=== PATIENT | female | born 1985 | race Caucasian/White ===

== ENCOUNTER → 2017-05-30 10:42 | Outpatient (CLI) | payer OTHER, SELFPAY ==
[2017-05-30 15:17] LABS: Hematocrit 37.6 % (37-47); Mean Corp Hgb Conc 31.9 g/gl (32-36); Mean Corpuscular Hgb 29.8 pg (27.0-32.0); Mean Corpuscular Volume 93.3 fL (81-99); Mean Platelet Vol. 9.6 fl (6.2-12.0); Platelet Count 258 K/mm3 (150-450); RBC Distribution Width CV 12.9 % (11.6-14.6); RBC Distribution Width SD 43.4 fl (35.1-43.9); Red Blood Count 4.03 M/mm3 (4.2-5.4); White Blood Count 7.6 K/mm3 (4.4-11.0)
[2017-05-30 15:19] LABS: Scan Indicated on CBC? Y/N NO
[2017-05-30 15:24] LABS: Glucose Challenge Gest 1H 50g 92 mg/dL (70-140)
== END ==
PROVIDERS: Visit Provider Obstetrics & Gynecology
DX: Z34.83 Encounter for supervision of other normal pregnancy, third trimester (principal)
CPT/HCPCS: 36415; 82950; 85027

== ENCOUNTER → 2017-07-21 16:07 | Outpatient (CLI) | payer OTHER, SELFPAY ==
[2017-07-21 17:21] LABS: Group B Strep DNA By PCR POSITIVE (Negative); Probe Check PASS
== END ==
PROVIDERS: Visit Provider Obstetrics & Gynecology
DX: Z36.85 Encounter for antenatal screening for Streptococcus B (principal)
CPT/HCPCS: 87653

== ENCOUNTER 2017-08-10 05:35 | Inpatient (IN) | payer OTHER, SELFPAY ==
[2017-08-10] VITALS (21 sets, daily range): BP systolic 86–108; BP diastolic 40–68; PULSE 62–93; RESP 15–20; TEMP 35.7–37.4; O2SAT 86–100
[2017-08-10] MEDS: Lactated Ringers 1,000 ML 999 ML IV (06:20)
[2017-08-10 06:50] LABS: Hematocrit 34.9 % (37-47); Hemoglobin 11.1 g/dl (12.0-15.0); Mean Corp Hgb Conc 31.8 g/gl (32-36); Mean Corpuscular Hgb 27.5 pg (27.0-32.0); Mean Corpuscular Volume 86.6 fL (81-99); Mean Platelet Vol. 9.7 fl (6.2-12.0); Platelet Count 237 K/mm3 (150-450); RBC Distribution Width CV 13.9 % (11.6-14.6); RBC Distribution Width SD 43.8 fl (35.1-43.9); Red Blood Count 4.03 M/mm3 (4.2-5.4); White Blood Count 8.6 K/mm3 (4.4-11.0)
[2017-08-10 06:53] LABS: Scan Indicated on CBC? Y/N NO
[2017-08-10] MEDS: Lactated Ringers 1,000 ML 150 ML IV (07:10)
[2017-08-10] MEDS: Sodium Citrate/Citric Acid 30 ML UDC PO (07:10)
[2017-08-10] MEDS: Cefazolin 2 GM in 0.9% Normal Saline 100 ML IV (07:20)
[2017-08-10] MEDS: Lactated Ringers 1,000 ML 100 ML IV ×3 (07:20→23:37)
--- NOTE | 2017-08-10 07:31 | DCINST_ITS ---
Discharge Diet: No Restrictions Discharge Activity: Return to Normal Activity, May Not Drive, May not drive while taking narcotic pain medications., May Shower Return to work on:: 10/09/17 May shower in (days): 0 May resume sexual activity in: 4-6 weeks Call your doctor if your incision/area has: Continuous Slow Oozing, Sudden Increased Bleeding, Increased Pain/ Swelling, Increased Redness, Foul Smelling Discharge, Swelling at the incision site Call your doctor if you observe: Fever of 101 or Higher, Inability to urinate, Inability to have a bowel movement, Using more than one pad per hour, Shortness of breath, Chest pain, Calf discomfort Remove Dressing in (days):: 2 Cleanse incision/area with: Soap & Water Additional Instructions: If you experience any of the following, contact your healthcare provider. * Bleeding that soaks a pad every hour for 2 hours * Fever 100.4 or higher * Unrelieved incision or abdominal pain * Swelling, redness, discharge or bleeding from your incision or episiotomy site * Your incision begins to separate * Problems urinating (including inability to urinate or burning while urinating) . * Visual changes * Severe headache * Flu-like symptoms * Pain or redness in one of both of your breasts * Pain, warmth, tenderness or swelling in your legs, especially the calf area * Frequent nausea and vomiting * Symptoms of depression or anxiety If you experience any of the following, call 911 or go to the nearest Emergency Room. * Chest pain * Problems breathing * Seizure activity * Partial or complete paralysis of a body part, slurred speech, weakness or drooping of the face, or a sudden inability to walk or hold your balance Allergies/Adverse Reactions: Allergies doxycycline Adverse Reaction (Intermediate, Verified 04/01/14 08:03) Diarrhea Medications to take at Discharge Naproxen [Naprosyn] 250 - 500 mg PO Q8H PRN PRN #40 tablet 04/02/14 Oxycodone [Oxyir] 5 - 10 mg PO Q4H PRN PRN #30 tablet 04/02/14 Vits [Prenatabs FA ] 1 tablet PO DAILY 08/08/17 Ibuprofen [Motrin] 800 mg PO TID PRN PRN #30 tab 08/10/17 Oxycodone [Oxyir] 5 - 10 mg PO Q4H PRN PRN 7 Days #30 tab 08/10/17 The following prescriptions were given: Oxycodone [Oxyir] 5 - 10 mg PO Q4H PRN PRN 7 Days #30 tab PRN Reason: Mod-Severe Pain (-01/31) Ibuprofen [Motrin] 800 mg PO TID PRN PRN #30 tab PRN Reason: pain or cramping Follow-Up: Call to make an appointment with your doctor for an incision check in 1-2 weeks. You will also need a 6 week post- follow up appointment. Please Follow Up With: Avery Cook MD When: one week Primary Care Physician: Care Physician,No Primary [Primary Care Provider] - Proposed Discharge Date: 08/12/17
[2017-08-10] MEDS: Oxytocin 30 units/NS 500 ml 30 UNITS/500 ML IV.SOLN 167 UNITS IV (07:57)
--- NOTE | 2017-08-10 08:26 | PCM.OB.CSR ---
- Problem List (1) Previous delivery affecting , delivered Status: Acute Delivery Classification: Scheduled Final KALEIGH: 08/17/17 Final KALEIGH Source: US <20 weeks Gestational age: 39 Weeks and 0 Days Indications for : Repeat Elective Description of Procedure: Normal appearing uterus, ovaries, and fallopian tubes. Minimal scarring present. Live female in vertex presentation. weight 7lb8oz. Apgars 8/9. Normal appearing placenta. Amniotic fluid clear. Amniotic Membrane Rupture Type: Artificial Amniotic Fluid Description: Clear Placenta Disposition: [facility] Drain: Clark to straight drain Fluids Replaced: 1500cc Cord Entanglement: None Cord Vessel Description: 3 Vessels Esitmated Blood Loss (ml): 400 Gender: Female (1 minute): 8 (5 minute): 9 Pre-op Antibiotic Given: Ancef 2 grams IV x1 Pt instructed on risks of surgery: Bleeding, Infection, Need for Future C-Sections, Failure Rate of 1 to 2%, Injury to surrounding structure(s) including bowel and bladder Complications: None - Admit VTE Documentation VTE Present on Admission: No VTE Mechan Device Prophylaxis: SCD's VTE Pharm Prophylaxis ordered?: No
--- NOTE | 2017-08-10 08:29 | OP.PCM_ITS ---
- Problem List (1) Previous delivery affecting , delivered Status: Acute Delivery Classification: Scheduled Final KALEIGH: 08/17/17 Final KALEIGH Source: US <20 weeks Gestational age: 39 Weeks and 0 Days Indications for : Repeat Elective Description of Procedure: Normal appearing uterus, ovaries, and fallopian tubes. Minimal scarring present. Live female in vertex presentation. weight 7lb8oz. Apgars 8/9. Normal appearing placenta. Amniotic fluid clear. Amniotic Membrane Rupture Type: Artificial Amniotic Fluid Description: Clear Placenta Disposition: [facility] Drain: Clark to straight drain Fluids Replaced: 1500cc Cord Entanglement: None Cord Vessel Description: 3 Vessels Esitmated Blood Loss (ml): 400 Gender: Female (1 minute): 8 (5 minute): 9 Pre-op Antibiotic Given: Ancef 2 grams IV x1 Pt instructed on risks of surgery: Bleeding, Infection, Need for Future C- Sections, Failure Rate of 1 to 2%, Injury to surrounding structure(s) including bowel and bladder Complications: None - Admit VTE Documentation VTE Present on Admission: No VTE Mechan Device Prophylaxis: SCD's VTE Pharm Prophylaxis ordered?: No
[2017-08-10] MEDS: Ketorolac 30 MG/ML Syringe IV ×3 (13:04→23:37)
[2017-08-10] MEDS: Cefazolin 1 GM/50 ML BAG IV ×2 (14:57→23:37)
--- NOTE | 2017-08-10 16:04 | NURSING ---
1500 pt oob up to chair pt gait steady; pt tolerated well; walked to door
--- NOTE | 2017-08-10 19:22 | NURSING ---
1830 pt up walking in cason
[2017-08-11] VITALS (7 sets, daily range): BP systolic 93–103; BP diastolic 56–69; PULSE 70–84; RESP 16–18; TEMP 36.8–37.4; O2SAT 97–98
--- NOTE | 2017-08-11 02:46 | NURSING ---
2100- noted drng to have extended slightly to two of the areas previously circled, will continue to monitor.
[2017-08-11] MEDS: Ketorolac 30 MG/ML Syringe IV ×2 (04:59→12:54)
[2017-08-11 05:08] LABS: Hematocrit 29.3 % (37-47); Hemoglobin 9.1 g/dl (12.0-15.0); Mean Corp Hgb Conc 31.1 g/gl (32-36); Mean Corpuscular Hgb 27.6 pg (27.0-32.0); Mean Corpuscular Volume 88.8 fL (81-99); Mean Platelet Vol. 9.9 fl (6.2-12.0); Platelet Count 200 K/mm3 (150-450); RBC Distribution Width CV 13.9 % (11.6-14.6); RBC Distribution Width SD 43.2 fl (35.1-43.9)
[2017-08-11 05:11] LABS: Scan Indicated on CBC? Y/N NO
[2017-08-11] MEDS: 0.9% Saline Lock 10 ML Syringe IV ×2 (08:53→12:58)
[2017-08-11] MEDS: Prenatal Vits Tablet 1 TABLET PO (08:53)
[2017-08-11] MEDS: Senna/Docusate Sodium 1 Tablet PO (08:53)
[2017-08-12] MEDS: Ketorolac 30 MG/ML Syringe IV ×3 (00:32→06:06)
[2017-08-12 02:00] VITALS: BP 99/61; PULSE 78; RESP 18; TEMP 37.3
--- NOTE | 2017-08-12 07:57 | PCM.PN.OB ---
Patient Problems: Active and Suspected Problems Previous delivery affecting , delivered (Acute) Subjective: POD#2 repeat C/S Doing well. Minimal pain and taking toradol only for this. Has not needed OxyIR. baby nursing well. Would like to go home today. Objective: Sitting up, semirecumbent, in bed. Nursing baby. - Physical Exam General: Alert, Oriented x3, Cooperative, No apparent distress HEENT: Atraumatic, EOMI Neurological: Cranial nerves II-XII grossly intact Psych/Mental Status: Normal Affect Vital Signs Temp Pulse Resp BP Pulse Ox 99.1 F 78 18 99/61 97 08/12/17 02:00 08/12/17 02:00 08/12/17 02:00 08/12/17 02:00 08/11/17 20:00 Oxygen Delivery Method Room Air Intake and Output for Last 24 Hours 08/10/17 08/11/17 08/12/17 23:59 23:59 23:59 Intake Total 3543 / 3543 520 / 520 Output Total 2350 / 2350 900 / 900 Balance 1193 / 1193 -380 / -380 Medical Necessity - Tobacco Use Smoking Status: Never smoker Assessment/Plan Active and Suspected Problems Previous delivery affecting , delivered (Acute) POD#1 Repeat C/S Stable postop. Discharge home today per pt request. RTO in 2 wk for postop incision check.
--- NOTE | 2017-08-12 08:01 | PCM.DC.SUM ---
Discharge Date and Diagnosis - Problem List Patient Problems: Active and Suspected Problems Previous delivery affecting , delivered (Acute) Date of Admission: 08/10/17 - 39 wk prior C/S for repeat C/S Date of Discharge: 08/12/17 - Repeat C/S delivery - Primary Discharge Diagnosis Active and Suspected Problems Previous delivery affecting , delivered (Acute) Hospital Course and Treatment Consultations 08/10/17 05:59 Consult: Anesthesia Routine Comment: Reason For Exam: C/S Operations: - - Repeat C/S Summary of Care Provided: The patient is a 31 year old female presents at 39 wk for repeat C section. Procedure performed without complications, on 08/10/17 . Noel viable female Apgars 8/9 Wt 7 # 8 oz. Postoperative course uneventful: minimal pain and taking NSAIDS only Mild postop (acute blood loss anemia) Breast feeding well Dischg home POD#2 in stable condition, to f/u in ofc for postop incision check as planned in 1-2 wks. Discharge Diet: No Restrictions Discharge Activity: Return to Normal Activity, May Not Drive, May not drive while taking narcotic pain medications., May Shower Return to work on:: 10/09/17 May shower in (days): 0 May resume sexual activity in: 4-6 weeks Call your doctor if your incision/area has: Continuous Slow Oozing, Sudden Increased Bleeding, Increased Pain/ Swelling, Increased Redness, Foul Smelling Discharge, Swelling at the incision site Call your doctor if you observe: Fever of 101 or Higher, Inability to urinate, Inability to have a bowel movement, Using more than one pad per hour, Shortness of breath, Chest pain, Calf discomfort Remove Dressing in (days):: 2 Cleanse incision/area with: Soap & Water Home Medications: Medications to take at Discharge Naproxen [Naprosyn] 250 - 500 mg PO Q8H PRN PRN #40 tablet 04/02/14 Oxycodone [Oxyir] 5 - 10 mg PO Q4H PRN PRN #30 tablet 04/02/14 Vits [Prenatabs FA ] 1 tablet PO DAILY 08/08/17 Ibuprofen [Motrin] 800 mg PO TID PRN PRN #30 tab 08/10/17 Oxycodone [Oxyir] 5 - 10 mg PO Q4H PRN PRN 7 Days #30 tab 08/10/17 Following Prescrptions Were Given to Patient: Oxycodone [Oxyir] 5 - 10 mg PO Q4H PRN PRN 7 Days #30 tab PRN Reason: Mod-Severe Pain (-01/31) Ibuprofen [Motrin] 800 mg PO TID PRN PRN #30 tab PRN Reason: pain or cramping Other Amb Orders: Electric breast pump Time Frame: 1 Year, Location: None Selected Primary Care Physician: Care Physician,No Primary [Primary Care Provider] - Please Follow Up With: Avery Cook MD When: one week Medical Necessity - Tobacco Use Smoking Status: Never smoker Meaningful Use Info Meaningful Use Diagnoses (Choose all that apply): None applicable
[2017-08-12 09:00] VITALS: BP 97/68; PULSE 78; RESP 16; TEMP 37.1; O2SAT 98
--- NOTE | 2017-08-22 12:44 | OP.PCM_ITS ---
Problem List (1) Previous delivery affecting , delivered Status: Chronic Report of Operation Date of Procedure: 08/10/17 Pre-Operative Diagnosis: Previous section Post-Operative Diagnosis: same Surgery/Procedure Performed:: Repeat Low Transverse Section Description of Surgical Findings:: Normal appearing uterus, ovaries, and fallopian tubes. Live fetus in vertex presentation. Apgars 8/9. Normal appearing placenta. motor vehicle representative: Betsey Martinez Type of Anesthesia:: Spinal Anesthesiologist: Myriam Renee Special Medications: none Specimen's removed: none Drains: roque Estimated Blood Loss (mL): 400 Fluids Replaced: 1500cc LR Description of Procedure: Gill was taken to the OR with IV running. She was given two grams of Cefotetan intravenously for surgical prophylaxis. SCDs were in place throughout the case and into recovery. Spinal anesthesia was introduced without complication. She was then prepped and draped in the supine position with a leftward tilt. A roque catheter was placed. Once anesthesia was deemed adequate a Pfannensteil skin incision was made approximately 2 cm above the symphysis pubis. The underlying subcutaneous tissue was dissected down to the level of fascia using blunt and sharp dissection. The fascia was then incised transversely in the midline. This incision was extended bilaterally using the Dubois scissors. The rectus muscles were then dissected off the fascia. The rectus muscles were then in the midline, the peritoneum identified and entered sharply. The peritoneal defect was enlarged using blunt retraction. A bladder blade was then placed. A bladder flap was then created and the bladder blade replaced. The lower uterine segment was then incised in a transverse fashion. Once the cavity was entered the uterine defect was extended using blunt lateral and superior traction. The membranes were then ruptured and the amniotic fluid was noted to be clear. The vertex was then delivered followed by the body. The nares and mouth were suctioned with a bulb suction and the baby was dried. Delayed cord clamping was employed. The cord was then clamped and cut. The baby was handed to the waiting nursing staff for evaluation. The placenta was then delivered manually. The uterus was then exteriorized and cleared of all clots and membranes. The uterine incision was then closed in two layers with good hemostasis noted. The gutters and posterior cul de sac were then cleared of all clot and fluid. The uterus was then returned to the abdomen. The uterine incision was reinspected and found to be intact. The peritoneum was then closed with 2-0 vicryl suture. The rectus muscles were then reapproximated with interrupted sutures of 0-Vicryl. The fascia was closed with a running stitch of #1 Stratofix suture. The subcutaneous tissue was closed with a running stitch of 2-0 Vicryl. The skin was closed with a subcuticular stitch of 4-0 monocryl. Sponge, lap and needle counts were correct. She was taken to the recovery room in stable condition. - Complications none - Admit VTE Documentation VTE Present on Admission: No VTE Mechan Device Prophylaxis: SCD's VTE Pharm Prophylaxis ordered?: No
== END 2017-08-12 11:45 | disposition home or self-care (01) | DRG 765 ==
PROVIDERS: Admitting Provider Obstetrics & Gynecology; Visit Provider Obstetrics & Gynecology
PROC: 10D00Z1 Extraction of Products of Conception, Low, Open Approach (ICD-10-PCS; CPT 59514; principal; 2017-08-10 07:15)
DX: O34.211 Maternal care for low transverse scar from previous cesarean delivery (principal); D62 Acute posthemorrhagic anemia; O90.81 Anemia of the puerperium; Z37.0 Single live birth; Z3A.39 39 weeks gestation of pregnancy
CPT/HCPCS: 85027; 86850; 86900; 99218; J7120; A4216; G0378

== ENCOUNTER → 2018-01-30 13:58 | Outpatient (CLI) | payer OTHER, SELFPAY ==
[2018-02-02 13:40] LABS: HPV HC, High Risk Negative (Negative)
== END ==
PROVIDERS: Visit Provider Obstetrics & Gynecology
DX: Z12.72 Encounter for screening for malignant neoplasm of vagina (principal)
CPT/HCPCS: 87624; 88175; G0145

== ENCOUNTER → 2020-04-22 12:39 | Outpatient (CLI) | payer OTHER, SELFPAY | PROVIDERS: Referring Provider Physician Assistant Surgical; Visit Provider Physician Assistant Surgical | DX: U07.1 COVID-19 (principal) | CPT/HCPCS: 87635; U0003 ==

== ENCOUNTER 2021-07-02 13:46 | Outpatient (CLI) | payer OTHER, SELFPAY ==
[2021-07-09 12:58] LABS: HPV APTIMA, High Risk Negative (Negative)
== END 2021-07-02 23:59 | disposition home or self-care (01) ==
LOC: LABSPEC 13:47
PROVIDERS: Visit Provider Student in an Organized Health Care Education/Training Program
DX: Z12.4 Encounter for screening for malignant neoplasm of cervix (principal)
CPT/HCPCS: 87624; 88175; G0145

== ENCOUNTER → 2024-08-30 | Outpatient (CLI) | payer OTHER, SELFPAY ==
[2024-08-30 13:44] LABS: Absolute Lymphocyte Count 1.67 X10^3/uL (0.83-4.51); Absolute Neutrophil Count 3.6 X10^3/uL (2.0-7.7); Basophil# 0.04 X10^3/uL; Basophil% 0.7 % (0-1); Eosinophil# 0.09 X10^3/uL; Eosinophils% 1.5 % (0-5); Hematocrit 42.3 % (37-47); Hemoglobin 13.6 g/dL (12.0-15.0); Lymphocyte # 1.67 X10^3/ul (0.83-4.51); Lymphocyte % 28.6 % (19-41); Mean Corp Hgb Conc 32.2 g/dL (32-36); Mean Corpuscular Hgb 29.3 pg (27.0-32.0); Mean Corpuscular Volume 91.2 fL (81-99); Mean Platelet Vol. 10.1 fl (6.2-12.0); Monocyte% 6.8 % (0-10); NRBC Flagged by Analyzer 0 % (0-5); Neutrophil # 3.61 X10^3/uL (2.7-7.7); Neutrophil % 61.9 % (47-70); Platelet Count 321 K/mm3 (150-450); RBC Distribution Width CV 12.8 % (11.6-14.6); RBC Distribution Width SD 42.1 fl (35.1-43.9); Red Blood Count 4.64 M/mm3 (4.2-5.4); White Blood Count 5.8 K/mm3 (4.4-11.0)
[2024-08-30 14:23] LABS: ALB/GLOB Ratio 1.4 RATIO (0.9-2.4); AST(SGOT) 19 U/L (<=31); Alanine Aminotransfer ALT/SGPT 16 U/L (<=34); Albumin, Serum 4.4 g/dL (3.5-5.0); Alkaline Phosphatase 62 U/L (35-104); Anion Gap 11 (5-15); BUN 15 mg/dL (4-19); Calcium,Total 9.9 mg/dL (7.6-11.0); Carbon Dioxide 24.9 mmol/L (21.0-32.0); Chloride 106 mmol/L (98-108); Cholesterol 247 mg/dL (<=200); Creatinine, Serum 0.73 mg/dL (0.70-1.20); EST Glomerular Filtration Rate 107 (>60); Globulin 3.1 g/dL (2.2-4.2); Glucose 62 mg/dL (70-99); High Density Lipoprotein 74 mg/dL; Low Density Lipoprotein Calc. 160 mg/dL; Potassium 4.2 mmol/L (3.3-5.1); Protein, Total 7.5 g/dL (5.9-8.4); Sodium Level 142 mmol/L (133-145); Total Bilirubin 0.27 mg/dL (0.00-1.30); Triglycerides 68 mg/dL; Very Low Density Lipoprotein 14 mg/dL (5-40); cholesterol:hdl ratio screen 3.34
== END | disposition home or self-care (01) ==
LOC: BIMLAB 09:03
PROVIDERS: PCP Internal Medicine; Referring Provider Internal Medicine; Visit Provider Internal Medicine
DX: Z00.00 Encounter for general adult medical examination without abnormal findings (principal); K59.09 Other constipation
CPT/HCPCS: 36415; 80053; 80061; 84439; 84443; 85025

== ENCOUNTER → 2024-11-15 | Outpatient (CLI) | payer OTHER, SELFPAY ==
--- NOTE | 2024-11-15 08:45 | BI_ITS ---
EXAM: SCRN MAMM (CAD)W/IBIS BILAT DATE: 11/15/2024 CLINICAL HISTORY: F, Age 38 y/o , BREAST CANCER SCREENING TECHNIQUE: SCRN MAMM (CAD)W/IBIS BILAT COMPARISON: Baseline examination, no priors. FINDINGS: TISSUE DENSITY: There are scattered areas of fibroglandular density. Bilateral Breast Mammographic Findings: No significant masses, calcifications or other abnormalities are identified. BI/SCRN MAMM (CAD)W/IBIS BILAT IMPRESSION: There is no mammographic evidence of malignancy. OVERALL FINAL ASSESSMENT BI-RADS 1: NEGATIVE. RECOMMENDATION: Routine annual follow-up in 1 Year A letter with findings and recommendations will be mailed to the patient. Reading Location: [id number]
--- OUTSIDE RECORDS SUMMARY | 2024-11-15 10:35 | XMS RPT_ITS | CCD ---
Author Organization [facility] Care Team Providers Care Shirt Bander Name Role Phone MARIA DE JESUS SHAH Attending Unavailable WOLF FISH Primary Care Unavailable WOLF FISH Primary Care Unavailable Care Physician, No Primary Primary Care Provider Unavailable Care Physician, No Primary Referring Provider Un available Dulce Maria ROJO, Dr. Bey Attending Provider Dulce Maria ROJO, Dr. Bey Primary Care Provider Dulce Maria ROJO, Dr. Bey Referring Provider Darrian Marcos DO, Dr. Araujo Attending Provider Care Physician, No Primary Referring Unava ilable Care Physician, No Primary Primary Care Unava ilable Oleghe, Efewongbe Attending Unavailable Oleghe, Efewongbe Referring Unavailable Oleghe, Efewongbe Attending Unavailable Oleghe, Efewongbe Primary Care Unavailable Oleghe, Efewongbe Primary Care Unavailable Gayle Conroy Referring Unavailayo e Gayle Conroy Attending Unavailabl e Truonge Gayle Marcos Attending Unavailabl e Care Physician, No Primary Referring Unava ilable Oleghe, Efewongbe Primary Care Unavailable Allergies Allergy Classification Reported Allergen(s) Allergy Type Date of Onset Reaction(s) Facility (4 sources) Doxycycline; Translations: [DOXYCYCLINE] Drug Allergy 04-28-2020 Diarrhea [facility] (1 source) Doxycycline Drug Allergy 11-08-2024 [facility] Medications Current Medications Medication Drug Class(es) Dates Sig (Normalized) Sig (Original) Berberine (1 source) Start: 11-08-2024 Berberine Active PO November 08, 2024 12:00am cholecalciferol 0.05 mg oral capsule (2 sources) Vitamin D Start: 08-23-2024 take 1 capsule by mouth once daily Cholecalciferol (Vitamin D3) 50 mcg (2,000 unit) capsule Active 50 ug PO daily August 23, 2024 12:00am Norgestimate-Ethinyl Estradiol (3 sources) Progestin, Estrogen Start: 04-22-2020 Norgestimate-Ethinyl Estradiol Active EACH PO April 22, 2020 10:27am Start: 04-22-2020 End: 08-23-2024 Norgestimate-Ethinyl Estradi ol 0.18/0.215/0.25 mg-25 mcg tablet Discontinued NMA PO April 22, 2020 1:00am August 23, 2024 10:05am probiotic (1 source) Start: 11-08-2024 probiotic Acti ve PO November 08, 2024 12:00am Completed/Discontinued Medications Medication Drug Class(es) Dates Sig (Normalized) Sig (Original) ibuprofen 800 mg oral tablet (3 sources) Nonsteroidal Anti-inflammatory Drug Start: 08-10-2017 End: 08-23-2024 take 1 tablet by mouth three times daily as needed for pain Ibuprofen 800 MG tablet Discontinued 800 mg PO 3 TIMES DAILY NEEDED as needed for pain or cramping 30 August 10, 2017 12:00am August 23, 2024 10:04am Magnesium Glycinate 118 mg magnesium capsule (2 sources) Start: 08-23-2024 End: 11-08-2024 Magnesium Glycinate 118 mg magnesium capsule Discontinued 240 mg PO DAILY August 23, 2024 12:00am November 08, 2024 9:53am Start: 08-23-2024 Magnesium Glyc inate 118 mg magnesium capsule Active 240 mg PO DAILY August 23, 2024 12:00am naproxen 250 mg oral tablet (3 sources) Nonsteroidal Anti-inflammatory Drug Start: 04-02-2014 End: 08-23-2024 take 250-500 mg by mouth every eight hours as needed for pain Naproxen 250 MG tablet Discontinued 250 - 500 mg PO EVERY 8 HOURS NEEDED as needed for PAIN 40 2 April 02, 2014 1:00am August 23, 2024 10:05am oxyCODONE hydrochloride 5 mg oral tablet (6 sources) Opioid Agonist Start: 04-02-2014 End: 08-23-2024 take 5-10 mg by mouth every four hours as needed for pain Oxycodone 5 MG tablet Discontinued 5 - 10 mg PO EVERY 4 HOURS NEEDED as needed for Mod-Severe Pain (4-01/31) 30 7 0 August 10, 2017 12:00am August 23, 2024 10:05am Postoperative pain Other acute postprocedural pain Vit,Urkz30-Eyue-Hk lic (Prenatabs Fa ) 1 TABLET tablet (3 sources) Start: 04-01-2014 End: 04-02-2014 take 1 tablet by mouth once daily Vit,Vwln72-Myss-Ho lic (Prenatabs Fa ) 1 TABLET tablet Discontinued 1 TABLET PO DAILY April 01, 2014 9:04am April 02, 2014 7:35pm Start: 04-01-2014 End: 04-02-2014 take 1 tablet by mouth once daily Vit,Hjut90-Dhks-Scmzv (Prenatab s Fa ) 1 TABLET tablet Discontinued 1 {tbl} PO DAILY April 01, 2014 1:00am April 02, 2014 7:35pm Vit,Miof00-Kopd-Vrjsc (Prenatabs Fa) 1 TABLET tablet (6 sources) Start: 08-08-2017 End: 08-23-2024 take 1 tablet by mouth once daily Vit,Hbge10-Tmlc-Umkqo (Prenatabs Fa) 1 TABLET tablet Discontinued 1 {tbl} PO DAILY August 08, 2017 11:21am August 23, 2024 10:05am Start: 08-08-2017 End: 08-23-2024 take 1 tablet by mouth once daily Vit,Ltsf00-Vbtr-Zxhij (Prenatab s Fa) 1 TABLET tablet Discontinued 1 {tbl} PO DAILY August 08, 2017 11:21am August 23, 2024 10:05am Start: 08-08-2017 take 1 tablet by channing th once daily Vit,Ituh01-Zabq-Mulky (Prenatab s Fa) 1 TABLET tablet Active 1 TABLET PO DAILY August 08, 2017 11:21am Start: 04-02-2014 End: 08-08-2017 take 1 tablet by mouth once daily Vit,Flwv76-Vtrk-Jkbvq (Prenatab s Fa) 1 TABLET tablet Discontinued 1 {tbl} PO DAILY 30 3 April 02, 2014 7:35pm August 08, 2017 11:21am Start: 04-02-2014 End: 08-08-2017 take 1 tablet by mouth once daily Vit,Uibu47-Qzqe-Nnoqv (Prenatab s Fa) 1 TABLET tablet Discontinued 1 {tbl} PO DAILY April 02, 2014 7:35pm August 08, 2017 11:21am Start: 04-02-2014 End: 08-08-2017 take 1 tablet by mouth once daily Vit,Lvxm90-Brpr-Gwpnm (Prenatab s Fa) 1 TABLET tablet Discontinued 1 TABLET PO DAILY April 02, 2014 7:35pm August 08, 2017 11:21am Bzdjzogg-7-Frc-Lemon [place] Xt 50-12.5-0.5 mg tablet,chewable (2 sources) Start: 08-23-2024 End: 11-08-2024 take 5 tablets by mouth once daily Octxwwsu-4-Apk-Lemon [place] Xt 50-12.5-0.5 mg tablet,chewable Discontinued 2 {tbl} PO DAILY August 23, 2024 12:00am November 08, 2024 9:53am Start: 08-23-2024 take 5 tablets by mo uth once daily Fqwzlpqp-4-Had-Lemon [place] Xt 50-12.5-0.5 mg tablet,chewable Active 2 {tbl} PO DAILY August 23, 2024 12:00am Problems Problem Classification Problem Date Documented Da te Episodic/Chronic Administrative/social admission (4 sources) First encounter by subject; Translations: [Persons encountering health services in other specified circumstances] 08-23-2024 Episodic Immunizations and screening for infectious disease (3 sources) Contact with and (suspected) exposure to other viral communicable diseases; Translations: [Contact with or suspected exposure to other viral communicable disease] 04-28-2020 Episodic Other gastrointestinal disorders (4 sources) Chronic constipation; Translations: [Other constipation] 08-23-2024 Episodic Other gastrointestinal disorders (4 sources) Abdominal bloating; Translations: [Abdominal distension (gaseous)] 08-23-2024 Episodic Other screening for suspected conditions (not mental disorders or infectious disease) (2 sources) Encounter for screening mammogram for malignant neoplasm of breast; Translations: [Encounter for screening mammogram for malignant neoplasm of breast] Onset: 11-08-2024 Episodic Results Test Name Value Interpretation Reference Range Facility [employer] Office Visit Reporton 11-08-2024 [employer] Office Visit Report [facility] [address], [address] [place] [address] OFFICE VISIT Date of Service: 11/08/24 MR#: [id number] Acct: [id number] Name: EVERT CAMPBELL Rep #: [id number] : 1985 Provider: Dr. 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 Required: No Is patient in pain?: No Allergies doxycycline Adverse Reaction (Intermediate, Verified 11/08/24 09:52) Diarrhea Medications ???Medication ???Instructions ???Recorded ???Confirmed ???Type cholecalciferol (vitamin D3) 50 50 mcg PO QDAY 08/23/24 11/08/24 H istory mcg (2,000 unit) capsule Berberine PO 11/08/24 11/08/24 History probiotic PO 11/08/24 11/08/24 History Is last menstrual period known: Yes Last Menstrual Period: 10/18/24 Post menopausal: No Patient : No : No [facility] Medical History Encounter to establish care Chronic constipation Bloating Preventative health care History of shingles Surgical History History of delivery Family History Grandfather Cancer Heart disease Diabetes Myocardial infarction High cholesterol Melanoma Mother Crohn's disease Osteoporosis High cholesterol Hypertension Sister Hypertension Grandmother Melanoma Osteoporosis Social History (Updated 11/08/24 @ 09:56 by Christiane Horner) household members: spouse and children housing: house current occupational status: employed 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 Smoking Status: Never smoker alcohol intake: current alcohol intake frequency: holidays/special occasions only substance use type: does not use what type of physical activity do you participate in: walking and weight training frequency: 3-4 times per week seatbelt use: always do you feel safe at home: Yes additional social history: : Mario History 2 Elective abortions Hx Para 2 Spontaneous abortions Hx # Term Pregnancies Ectopic pregnancies Hx # Pregnancies Multiple births # of living children 2 HPI Encounter for routine gynecological examination Details: EVERT CAMPBELL is a 38 year old who presents for annual exam. vasectomy. 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 starting to have menopausal symptoms Last PAP: 07/02/2021 History of abnormal PAP: No Last mammogram: Due this year, order placed History of abnormal mammogram: [] Colon cancer screening: Due at 44yr Other preventative health care screenings: PCP - Dr العراقي Female Reproductive History Last Menstrual Period: 10/18/24 Cycle Length: 21-35 Bleeding Duration: 5 Questions: metorrhagia: No, sexually active: Yes, dyspareunia: No and PCB: No Menopausal Symptoms: No hot flashes, No night sweats, No weight change, No mood changes, No difficulty concentrating, No sleep problems and No change in libido ROS Const Constitutional: Reports as per HPI; Denies fatigue, increased appetite, poor appetite, night sweats, weight gain or weight loss Cardio Card: Denies chest pain Resp Resp: Denies cough or dyspnea GI GI: Reports as per HPI; Denies abdominal pain, bloating, constipation, nausea or vomiting : Reports as per HPI and other; Denies difficulty voiding, dysuria, hematuria, hot flashes, nipple discharge, pelvic pain, prolapse symptoms, urinary frequency, urinary incontinence, urinary urgency, vaginal discharge, vaginal dryness, vaginal odor or vaginal pruritus Skin Skin/Breast: Denies changing lesions, breast mass, breast pain, breast skin changes or nipple discharge Psych Psych: Denies anxiety, change in libido, depression or difficulty concentrating Exam Const General: cooperative, healthy appearing, comfortable, no acute distress, well developed and well groomed HENNM Head: normal to inspection and normocephalic Ears: hearing grossly normal bilaterally and external ears normal Nose: external nose normal Face and sinus: normal facial exam Neck Neck: normal visual inspection, full ROM and no lymphadenopathy Thyroid: thyroid normal Chest Chest palpation inspection: normal inspection of the chest Breast inspection: normal inspection of the breasts and normal inspection of the axillae Breast palpation: normal palpation of the br (more content not included)... Normal [facility] Absolute lymphocyte countOrd ered By: Sotero العراقي on 08-30-2024 Lymphocytes Auto (Unsp spec) [#/Vol] 1.67 10*3/uL 0.83-4.51 [facility] Absolute neutrophil countOrd ered By: Sotero العراقي on 08-30-2024 Neutrophils (Bld) [#/Vol] 3.6 10*3/uL 2.0-7.7 [facility] Anion gap in Serum or Plasma Ordered By: Sotero العراقي on 08-30-2024 Anion gap [Moles/Vol] 11 mmol/L 5-15 [facility] Automated lymphocyte count a s percentage of total leukocytesOrdered By: Sotero العراقي on 08-30-2024 Lymphocytes/100 WBC Auto (Unsp spec) 28.6 % 19-41 [facility] BUN/creatinine ratioOrdered By: kainwilliamsmickey العراقي on 08-30-2024 Urea nitrogen/Creatinine [Mass ratio] 20.0 mg/mg 10-20 [facility] Basophil percentageOrdered B y: Sotero العراقي on 08-30-2024 Basophils/100 WBC (Bld) 0.7 % 0-1 [facility] Bilirubin, totalOrdered By: Sotero العراقي on 08-30-2024 Bilirubin [Mass/Vol] 0.27 mg/dL 0.00-1.30 [facility] CBC W/Diff, Automatedon Absolute Lymph 1.67 X10 3/uL Normal 0.83-4.51 [facility] Comment on above: Performed By: #### L 500.4100, L501.9520, L100.0100, L500.4050, L506.0400 #### [facility] [address] [place], [place], [id number] Absolute Neut 3.6 X10 3/uL Normal 2.0-7.7 [facility] Comment on above: Performed By: #### L 500.4100, L501.9520, L100.0100, L500.4050, L506.0400 #### [facility] [address] [place], [address] Basophils/100 WBC (Bld) 0.7 % Normal 0-1 [facility] Comment on above: Performed By: #### L 500.4100, L501.9520, L100.0100, L500.4050, L506.0400 #### [facility] [address] [place], [address] Eosinophils/100 WBC (Bld) 1.5 % Normal 0-5 [facility] Comment on above: Performed By: #### L 500.4100, L501.9520, L100.0100, L500.4050, L506.0400 #### [facility] [address] [place], [address] Erythrocyte distribution width (RBC) [Ratio] 12.8 % Normal 11.6-14.6 [facility] Comment on above: Performed By: #### L 500.4100, L501.9520, L100.0100, L500.4050, L506.0400 #### [facility] [address] [place], [address] Hematocrit (Bld) [Volume fraction] 42.3 % Normal 37-47 [facility] Comment on above: Performed By: #### L 500.4100, L501.9520, L100.0100, L500.4050, L506.0400 #### [facility] [address] [place], [address] Hemoglobin (Bld) [Mass/Vol] 13.6 g/dL Normal 12.0-15.0 [facility] Comment on above: Performed By: #### L 500.4100, L501.9520, L100.0100, L500.4050, L506.0400 #### [facility] [address] [place], [address] IG% 0.500 Normal 0.0-0.9 [facility] Comment on above: Result Comment: IG% - Immature Granulocytes (promyelocytes, myelocytes and metamyelocytes) > 1% indicates that a LEFT SHIFT is Present. Performed By: #### L 500.4100, L501.9520, L100.0100, L500.4050, L506.0400 #### [facility] [address] [place], [address] Lymphocytes/100 WBC (Bld) 28.6 % Normal 19-41 [facility] Comment on above: Performed By: #### L 500.4100, L501.9520, L100.0100, L500.4050, L506.0400 #### [facility] [address] [place], [address] MCH (RBC) [Entitic mass] 29.3 pg Normal 27.0-32.0 [facility] Comment on above: Performed By: #### L 500.4100, L501.9520, L100.0100, L500.4050, L506.0400 #### [facility] [address] [place], [address] MCHC (RBC) [Mass/Vol] 32.2 g/dL Normal 32-36 [facility] Comment on above: Performed By: #### L 500.4100, L501.9520, L100.0100, L500.4050, L506.0400 #### [facility] [address] [place], [address] MCV (RBC) [Entitic vol] 91.2 fL Normal 81-99 [facility] Comment on above: Performed By: #### L 500.4100, L501.9520, L100.0100, L500.4050, L506.0400 #### [facility] [address] [place], [address] Monocytes/100 WBC (Bld) 6.8 % Normal 0-10 [facility] Comment on above: Performed By: #### L 500.4100, L501.9520, L100.0100, L500.4050, L506.0400 #### [facility] [address] [place], [address] Neutrophils/100 WBC (Bld) 61.9 % Normal 47-70 [facility] Comment on above: Performed By: #### L 500.4100, L501.9520, L100.0100, L500.4050, L506.0400 #### [facility] [address] [place], [address] Nucleated RBC (Bld) [#/Vol] 0 10*3/uL Normal 0-5 [facility] Comment on above: Performed By: #### L 500.4100, L501.9520, L100.0100, L500.4050, L506.0400 #### [facility] [address] [place], [address] Platelet mean volume (Bld) [Entitic vol] 10.1 fL Normal 6.2-12.0 [facility] Comment on above: Performed By: #### L 500.4100, L501.9520, L100.0100, L500.4050, L506.0400 #### [facility] [address] [place], [address] Platelets (Bld) [#/Vol] 321 10*3/uL Normal 150-450 [facility] Comment on above: Performed By: #### L 500.4100, L501.9520, L100.0100, L500.4050, L506.0400 #### [facility] [address] [place], [address] RBC (Bld) [#/Vol] 4.64 10*6/uL Normal 4.2-5.4 [facility] Comment on above: Performed By: #### L 500.4100, L501.9520, L100.0100, L500.4050, L506.0400 #### [facility] [address] [place], [address] RDW SD 42.1 fl Normal 35.1-43.9 [facility] Comment on above: Performed By: #### L 500.4100, L501.9520, L100.0100, L500.4050, L506.0400 #### [facility] [address] [place], [address] WBC (Bld) [#/Vol] 5.8 10*3/uL Normal 4.4-11.0 [facility] Comment on above: Performed By: #### L 500.4100, L501.9520, L100.0100, L500.4050, L506.0400 #### [facility] [address] [place], [address] Calculated very low density lipoprotein (VLDL) cholesterol measurementOrdered By: Sotero العراقي on 08-30-2024 Calculated very low density lipoprotein (VLDL) cholesterol measurement 14 mg/dL 5-40 [facility] Carbon dioxide, total [Moles /volume] in Central venous bloodOrdered By: Sotero العراقي on 08-30-2024 CO2 [Moles/Vol] 24.9 mmol/L 21.0-32.0 [facility] Chloride assayOrdered By: Radha العراقي on 08-30-2024 Chloride [Moles/Vol] 106 mmol/L 98-108 [facility] Comprehensive Metabolic Prof ilon 08-30-2024 Albumin [Mass/Vol] 4.4 g/dL Normal 3.5-5.0 [facility] Comment on above: Performed By: #### L 500.4100, L501.9520, L100.0100, L500.4050, L506.0400 #### [facility] [address] [place], [address] Albumin/Globulin [Mass ratio] 1.4 {ratio} Normal 0.9-2.4 [facility] Comment on above: Performed By: #### L 500.4100, L501.9520, L100.0100, L500.4050, L506.0400 #### [facility] [address] [place], [address] ALK PHOS 62 U/L Normal 35-104 [facility] Comment on above: Performed By: #### L 500.4100, L501.9520, L100.0100, L500.4050, L506.0400 #### [facility] [address] [place], [address] ALT [Catalytic activity/Vol] 16 U/L Normal <=34 [facility] Comment on above: Performed By: #### L 500.4100, L501.9520, L100.0100, L500.4050, L506.0400 #### [facility] [address] [place], [address] AST [Catalytic activity/Vol] 19 U/L Normal <=31 [facility] Comment on above: Performed By: #### L 500.4100, L501.9520, L100.0100, L500.4050, L506.0400 #### [facility] [address] [place], [address] Bilirubin [Mass/Vol] 0.27 mg/dL Normal 0.00-1.30 [facility] Comment on above: Performed By: #### L 500.4100, L501.9520, L100.0100, L500.4050, L506.0400 #### [facility] [address] [place], [address] BUN/CRE 20.0 RATIO Normal 10-20 [facility] Comment on above: Performed By: #### L 500.4100, L501.9520, L100.0100, L500.4050, L506.0400 #### [facility] [address] [place], [address] Calcium [Mass/Vol] 9.9 mg/dL Normal 7.6-11.0 [facility] Comment on above: Performed By: #### L 500.4100, L501.9520, L100.0100, L500.4050, L506.0400 #### [facility] [address] [place], [address] Chloride [Moles/Vol] 106 mmol/L Normal 98-108 [facility] Comment on above: Performed By: #### L 500.4100, L501.9520, L100.0100, L500.4050, L506.0400 #### [facility] [address] [place], [address] CO2 [Moles/Vol] 24.9 mmol/L Normal 21.0-32.0 [facility] Comment on above: Performed By: #### L 500.4100, L501.9520, L100.0100, L500.4050, L506.0400 #### [facility] [address] [place], [address] Creatinine [Mass/Vol] 0.73 mg/dL Normal 0.70-1.20 [facility] Comment on above: Performed By: #### L 500.4100, L501.9520, L100.0100, L500.4050, L506.0400 #### [facility] [address] [place], [address] GAP 11 Normal 5-15 [facility] Comment on above: Performed By: #### L 500.4100, L501.9520, L100.0100, L500.4050, L506.0400 #### [facility] [address] [place], [address] GFR/1.73 sq M.predicted among non-blacks MDRD (S/P/Bld) [Vol rate/Area] 107 mL/min/{1.73_m2} Normal >60 [facility] Comment on above: Result Comment: mL/m in/1.73m2 CKD-EPI Creatinine Equation (2020) Performed By: #### L 500.4100, L501.9520, L100.0100, L500.4050, L506.0400 #### [facility] [address] [place], [address] Globulin (S) [Mass/Vol] 3.1 g/dL Normal 2.2-4.2 [facility] Comment on above: Performed By: #### L 500.4100, L501.9520, L100.0100, L500.4050, L506.0400 #### [facility] [address] [place], [address] Glucose [Mass/Vol] 62 mg/dL Low 70-99 [facility] Comment on above: Performed By: #### L 500.4100, L501.9520, L100.0100, L500.4050, L506.0400 #### [facility] [address] [place], [address] Potassium [Moles/Vol] 4.2 mmol/L Normal 3.3-5.1 [facility] Comment on above: Performed By: #### L 500.4100, L501.9520, L100.0100, L500.4050, L506.0400 #### [facility] [address] [place], [address] Sodium [Moles/Vol] 142 mmol/L Normal 133-145 [facility] Comment on above: Performed By: #### L 500.4100, L501.9520, L100.0100, L500.4050, L506.0400 #### [facility] [address] [place], [address] T PROT 7.5 g/dL Normal 5.9-8.4 [facility] Comment on above: Performed By: #### L 500.4100, L501.9520, L100.0100, L500.4050, L506.0400 #### [facility] [address] [place], [address] Urea nitrogen [Mass/Vol] 15 mg/dL Normal 4-19 [facility] Comment on above: Performed By: #### L 500.4100, L501.9520, L100.0100, L500.4050, L506.0400 #### [facility] [address] [place], [address] Eosinophil percentageOrdered By: Sotero العراقي on 08-30-2024 Eosinophils/100 WBC (Bld) 1.5 % 0-5 [facility] Erythrocyte distribution wid th ratioOrdered By: Sotero العراقي on 08-30-2024 Erythrocyte distribution width (RBC) [Ratio] 12.8 % 11.6-14.6 [facility] Erythrocyte distribution wid th standard deviationOrdered By: Sotero العراقي on 08-30-2024 Erythrocyte distribution width (RBC) [Ratio] 42.1 fl 35.1-43.9 [facility] Glomerular filtration rate ( GFR) estimation/1.73 sq m using serum, plasma, or whole bOrdered By: Sotero العراقي on 08-30-2024 GFR/1.73 sq M.predicted among non-blacks MDRD (S/P/Bld) [Vol rate/Area] 107 mL/min/{1.73_m2} >60 [facility] Comment on above: mL/min/1.73m2 CKD-EP I Creatinine Equation (2020) Hematocrit Auto (Bld) [Volum e fraction]Ordered By: Sotero العراقي on 08-30-2024 Hematocrit (Bld) [Volume fraction] 42.3 % 37-47 [facility] Hemoglobin measurementOrdere d By: Sotero العراقي on 08-30-2024 Hemoglobin (Bld) [Mass/Vol] 13.6 g/dL 12.0-15.0 [facility] Immature granulocytes/100 WB C Auto (Bld)Ordered By: Sotero العراقي on 08-30-2024 Immature granulocytes/100 WBC (Bld) 0.500 % 0.0-0.9 [facility] Comment on above: IG% - Immature Granu locytes (promyelocytes, myelocytes and metamyelocytes) > 1% indicates that a LEFT SHIFT is Present. LDL calc ser/plasOrdered By: Sotero العراقي on 08-30-2024 Cholesterol in LDL [Mass/Vol] 160 mg/dL [facility] Comment on above: Ngzperlcch=288-228 m g/dL & Higher Ljsp=348 mg/dL or greater Laboratory - Chemistry and C hemistry - challengeOrdered By: Sotero العراقي on 08-30-2024 AST [Catalytic activity/Vol] 19 U/L <32 [facility] Lipid Profileon 08-30-2024 CHOL:HDL 3.34 Normal [facility] Comment on above: Performed By: #### L 500.4100, L501.9520, L100.0100, L500.4050, L506.0400 #### [facility] [address] [place], [place], [id number] Cholesterol [Mass/Vol] 247 mg/dL High <=200 [facility] Comment on above: Result Comment: Chol esterol level, Desirable <200 mg/dL Borderline high cholesterol 200-239 mg/dL High cholesterol >=240 mg/dL Recommendations of the NCEP Adult Treatment Panel for the following risk-cutoff thresholds for the [place] population. Performed By: #### L 500.4100, L501.9520, L100.0100, L500.4050, L506.0400 #### [facility] [address] [place], [address] Cholesterol in HDL [Mass/Vol] 74 mg/dL Normal [facility] Comment on above: Result Comment: Amanda onal Cholesterol Education Program (NCEP) guidelines: <40 mg/dL: Low HDL-cholesterol (major risk factor for CHD) >= 60 mg/dL: High HDL-cholesterol (negative risk factor for CHD) HDL-cholesterol is affected by a number of factors, e.g. smoking, exercise, hormones, sex and age. Performed By: #### L 500.4100, L501.9520, L100.0100, L500.4050, L506.0400 #### [facility] [address] [facility] [facility] [place], [address] Cholesterol in LDL [Mass/Vol] 160 mg/dL Normal [facility] Comment on above: Result Comment: Bord odqljf=642-435 mg/dL Higher Bdll=967 mg/dL or greater Performed By: #### L 500.4100, L501.9520, L100.0100, L500.4050, L506.0400 #### [facility] [address] [place], [address] Cholesterol in VLDL [Mass/Vol] 14 mg/dL Normal 5-40 [facility] Comment on above: Performed By: #### L 500.4100, L501.9520, L100.0100, L500.4050, L506.0400 #### [facility] [address] [place], [address] Triglyceride [Mass/Vol] 68 mg/dL Normal [facility] Comment on above: Result Comment: The drugs N-Acetylcysteine and Metamizole may falsely depress this assay. Normal range: <150 mg/dL Borderline High: 150-199 mg/dL High: 200-499 mg/dL Very High: >500 mg/dL Performed By: #### L 500.4100, L501.9520, L100.0100, L500.4050, L506.0400 #### [facility] [address] [place], [address] MCV (mean corpuscular volume ) determinationOrdered By: Sotero العراقي on 08-30-2024 MCV (RBC) [Entitic vol] 91.2 fL 81-99 [facility] Mean corpuscular hemoglobin (MCH) determinationOrdered By: Sotero العراقي on 08-30-2024 MCH (RBC) [Entitic mass] 29.3 pg 27.0-32.0 [facility] Mean corpuscular hemoglobin concentration (MCHC) determinationOrdered By: Sotero العراقي on 08-30-2024 MCHC (RBC) [Mass/Vol] 32.2 g/dL 32-36 [facility] Mean platelet volume determi nationOrdered By: Sotero لاعراقي on 08-30-2024 Platelet mean volume (Bld) [Entitic vol] 10.1 fL 6.2-12.0 [facility] Monocyte percentageOrdered B y: Sotero العراقي on 08-30-2024 Monocytes/100 WBC (Bld) 6.8 % 0-10 [facility] Neutrophil percentageOrdered By: kainwilliamsmickey العراقي on 08-30-2024 Neutrophils/100 WBC (Bld) 61.9 % 47-70 [facility] Nucleated red blood cell per centageOrdered By: Sotero العراقي on 08-30-2024 Nucleated RBC/100 WBC (Bld) [Ratio] 0 % 0-5 [facility] Platelet countOrdered By: Radha العراقي on 08-30-2024 Platelets (Bld) [#/Vol] 321 10*3/uL 150-450 [facility] Potassium measurement (mass/ volume)Ordered By: Sotero العراقي on 08-30-2024 Potassium (Unsp spec) [Mass/Vol] 4.2 mmol/L 3.3-5.1 [facility] RBC Auto (Bld) [#/Vol]Ordere d By: Sotero العراقي on 08-30-2024 RBC (Bld) [#/Vol] 4.64 10*6/uL 4.2-5.4 [facility] Screening total cholesterol/ high density lipoprotein (HDL) cholesterol ratioOrdered By: Sotero العراقي on 08-30-2024 Cholesterol.total/Choles terol in HDL [Mass ratio] 3.34 {ratio} [facility] Serum creatinine measurement (mass/volume)Ordered By: Sotero العراقي on 08-30-2024 Creatinine [Mass/Vol] 0.73 mg/dL 0.70-1.20 [facility] Serum globulin measurementOr dered By: Sotero العراقي on 08-30-2024 Globulin (S) [Mass/Vol] 3.1 g/dL 2.2-4.2 [facility] Serum glucose measurement (m ass/volume)Ordered By: Sotero العراقي on 08-30-2024 Glucose [Mass/Vol] 62 mg/dL Low 70-99 [facility] Serum or plasma alanine auguste otransferase (ALT) measurementOrdered By: Sotero العراقي on 08-30-2024 ALT [Catalytic activity/Vol] 16 U/L <35 [facility] Serum or plasma albumin judy urement (mass/volume)Ordered By: Sotero العراقي on 08-30-2024 Albumin [Mass/Vol] 4.4 g/dL 3.5-5.0 [facility] Serum or plasma albumin/glob ulin mass ratioOrdered By: Sotero العارقي on 08-30-2024 Albumin/Globulin [Mass ratio] 1.4 {ratio} 0.9-2.4 [facility] Serum or plasma alkaline katie sphatase measurementOrdered By: Sotero العراقي on 08-30-2024 ALP [Catalytic activity/Vol] 62 U/L 35-104 [facility] Serum or plasma calcium judy urement (mass/volume)Ordered By: Sotero العراقي 08-30-2024 Calcium [Mass/Vol] 9.9 mg/dL 7.6-11.0 [facility] Serum or plasma cholesterol in HDL measurement (mass/volume)Ordered By: Sotero العراقي on 08-30-2024 Cholesterol in HDL [Mass/Vol] 74 mg/dL >40 [facility] Comment on above: National Cholesterol Education Program (NCEP) guidelines:<40 mg/dL: Low HDL-cholesterol (major risk factor for CHD)>= 60 mg/dL: High HDL-cholesterol (negative risk factor for CHD)HDL-cholesterol is affected by a number of factors, e.g. smoking, exercise, hormones, sex and age. Serum or plasma cholesterol measurement (mass/volume)Ordered By: Sotero العراقي on 08-30-2024 Cholesterol [Mass/Vol] 247 mg/dL High <201 [facility] Comment on above: Cholesterol level, D esirable <200 mg/dLBorderline high cholesterol 200-239 mg/dLHigh cholesterol >=240 mg/dLRecommendations of the NCEP Adult Treatment Panel for the following risk-cutoff thresholds for the [place] population. Serum or plasma urea nitroge n measurement (mass/volume)Ordered By: Sotero العراقي on 08-30-2024 Urea nitrogen [Mass/Vol] 15 mg/dL 4-19 [facility] Sodium levelOrdered By: Jocelyne العراقي on 08-30-2024 Sodium [Moles/Vol] 142 mmol/L 133-145 [facility] T4 Free Directon 08-30-2024 T4 FREE DIRECT 1.00 ng/dL Normal 0.76-1.46 [facility] Comment on above: Performed By: #### L 500.4100, L501.9520, L100.0100, L500.4050, L506.0400 #### [facility] [address] [place], [id number] T4 freeOrdered By: Sotero العراقي on 08-30-2024 Free T4 [Mass/Vol] 1.00 ng/dL 0.76-1.46 [facility] TSH DL <= 0.005 mIU/L QnOrde red By: Sotero العراقي on 08-30-2024 TSH Qn 2.360 uIU/mL 0.300-4.200 [facility] Thyroid Stim Hormone (TSH)on 08-30-2024 TSH 2.360 uIU/mL Normal 0.300-4.200 [facility] Comment on above: Performed By: #### L 500.4100, L501.9549, L100.0100, L500.4050, L506.0400 #### [facility] [address] [place], [address] Total proteinOrdered By: Garo العراقي on 08-30-2024 Protein [Mass/Vol] 7.5 g/dL 5.9-8.4 [facility] Triglycerides measurementOrd ered By: Sotero العراقي on 08-30-2024 Triglyceride [Mass/Vol] 68 mg/dL <199 [facility] Comment on above: The drugs N-Acetylcy steine and Metamizole may falsely depress this assay. Normal range: <150 mg/dLBorderline High: 150-199 mg/dLHigh: 200-499 mg/dLVery High: >500 mg/dL White blood cell (WBC) count Ordered By: Sotero العراقي on 08-30-2024 WBC (Bld) [#/Vol] 5.8 10*3/uL 4.4-11.0 [facility] Internal Medicine Office Vis iton 08-23-2024 Internal Medicine Office Visit [facility] [place] [address] [place] [address] OFFICE VISIT Date of Service: 08/23/24 MR#: [id number] Acct: [id number] Name: EVERT CAMPBELL Rep #: [id number] 1 : 1985 Provider: Dr. 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 MENSES UNPREDICTABLE, EMOTIONS ARE MORE VARIABLE. [facility] Medical History (Updated 08/23/24 @ 10:[address] Sotero العراقي MD) Encounter to establish care Chronic constipation Bloating Preventative health care History of shingles Surgical History History of delivery Family History Grandfather Cancer Heart disease Diabetes Myocardial infarction High cholesterol Melanoma Mother Crohn's disease Osteoporosis High cholesterol Hypertension Sister Hypertension Grandmother Melanoma Osteoporosis Social History (Updated 08/23/24 @ 10:07 by Mile Solis) household members: spouse and children housing: house Smoking Status: Never smoker alcohol intake: current alcohol intake frequency: holidays/special occasions only substance use type: does not use what type of physical activity do you participate in: walking and weight training frequency: 3-4 times per week seatbelt use: always do you feel safe at home: Yes HPI HPI Chief Complaint: 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 She reports a lifelong history of "gut issues" she states that her other family members have similar. Typically does not have a bowel movement every day, has been this way. No blood or dark stools. No pain with bowel movements. Lately, she has noted increased bloating and flatulence. No nausea, vomiting, unintentional weight changes. Otherwise, she feels well. Exercises a couple days a week. No tobacco or alcohol abuse. Last Pap smear was about 2 years ago and has an appointment to establish with SWING MANAGER in October. 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 ROS Const Constitutional: No body ache, chills, excessive sweating, fatigue, fever(s), frequent falls, headache(s), snoring, weakness, sleep problems or change in appetite Eyes Eyes: No blurry vision, change in vision, dry eyes, bulging eyes, floaters or Light sensitivity ENT ENT: No abnormal hearing, ear or mastoid pain, tinnitus, balance problems, nosebleed/epistaxis, nasal congestion, nasal discharge, headache(s), neck pain or sore throat Resp Respiratory: No cough, excessive phlegm production, pain on inspiration, shortness of breath, snoring or wheezing Cardio Cardiology: No chest pain at rest, chest pain with exertion, excessive sweating, shortness of breath, dyspnea on exertion, lightheadedness, orthopnea or palpitations Gastro GI: Positive for bloating (DAILY); No abdominal pain, change in bowel habits, cramping, diarrhea or nausea/dyspepsia Genitourinary-Female : No burning urination, painful urination, urinary incontinence, urinary frequency, suprapubic fullness or side pain Musc Musculoskeletal: No abnormal gait, joint pain, back pain, limited range of motion, muscle weakness, neck pain or numbness Skin Skin: No dry skin, redness, excessive hair growth, yellowing of the eye, lesions, itchy eyes, rash or wounds Neuro Neurology: No abnormal gait, abnormal hearing, behavioral changes, unsteady gait/balance, weakness, frequent falls, headache(s), memory loss or numbness Psych Psychiatric: No anxiety, No behavioral changes, No change in appetite, No depression, No memory loss, No panic attacks and No Thoughts of harming yourself/Others Endo Endocrine: No cold intolerance, excessive sweating, fatigue, flushing, heat intolerance, increased thirst/drinking or increased hunger Aller/Imm Allergy/Immunologic: No itchy eyes, (more content not included)... Normal [facility] CNOVon 04-24-2023 CNOV Office Visit ([facility]) EVERT CAMPBELL ([id number]) 1985 F Date Time Provider Department 04/24/23 10:15 AM YOKASTA MARIA [facility] During your visit today, we recorded the following information about you: Temperature Pulse Respiration Blood pressure 98.7 degrees 99/minute 21/minute 112/76 Weight 65.5 kg Maria De Jesus Shah APRN.SAWMILL MOULDER OPERATOR 04/24/2023 10:28 AM Signed Subjective HPI Nontoxic-appearing female presents urgent care chief complaint cough nasal congestion sinus pressure body aches chills night sweats low-grade temperature. Patient was seen here the day after [place]. Diagnosed with bacterial sinusitis. Placed on Augmentin for 10 days. Still has 4 days of antibiotic left. States initially symptoms were improving when she felt poorly again on Monday of last week. States she developed body aches chills fatigue night sweats worsening cough. Additionally states eyes feel slightly achy. States symptoms are slightly improving. Presents here today for evaluation. Has been using OTC medications that have helped some. States daughter tested positive for influenza 1226. Denies any high fevers productive cough chest pain shortness of breath hemoptysis nausea vomiting abdominal pain visual changes eye trauma flashlight floaters eye drainage pain with EOMs. Past medical history prescription medications allergies reviewed. Denies chance of is not breast-feeding. .Patient presents with: Sinus Problem: Possible sinus issue, congestion, bilateral eye pain, cough x 2 weeks History reviewed. No pertinent past medical history. History reviewed. No pertinent surgical history. ALLERGIES Doxycycline MEDICATIONS amoxicillin-clavulan ate potassium (AUGMENTIN) 875-125 mg per tablet Take 1 tablet by mouth two times a day for 10 days. Benzonatate (TESSALON) 200 mg capsule Take 200 mg by mouth three times daily as needed for Cough. NORGESTIMATE-ETHINYL ESTRADIOL (ORTHO TRI-CYCLEN LO ORAL) Take by mouth. (Patient not taking: Reported on 04/18/2023) History reviewed. No pertinent family history. Social History Tobacco Use Smoking status: Never Smokeless tobacco: Never BP 112/76 Pulse 99 Temp 37.1 ?C (98.7 ?F) Resp 21 Wt 65.5 kg (144 lb 6.4 oz) LMP 03/16/2015 SpO2 98% Review of Systems Constitutional: Positive for chills and malaise/fatigue. Negative for fever. HENT: Positive for congestion and sore throat. Negative for ear discharge, ear pain and sinus pain. Eyes: Negative for blurred vision, pain, discharge and redness. Respiratory: Positive for cough. Negative for hemoptysis, sputum production, shortness of breath, wheezing and stridor. Cardiovascular: Negative for chest pain. Gastrointestinal: Negative for abdominal pain, diarrhea, nausea and vomiting. Musculoskeletal: Positive for myalgias. Skin: Negative for itching and rash. Neurological: Positive for headaches. Negative for dizziness. Objective Physical Exam Constitutional: General: She is not in acute distress. Appearance: She is not diaphoretic. HENT: Head: Normocephalic. Jaw: No trismus, tenderness, swelling or pain on movement. Right Ear: Tympanic membrane, ear canal and external ear normal. Left Ear: Tympanic membrane, ear canal and external ear normal. Nose: Congestion present. Mouth/Throat: Mouth: Mucous membranes are moist. Pharynx: Oropharynx is clear. Uvula midline. No pharyngeal swelling, oropharyngeal exudate, posterior oropharyngeal erythema or uvula swelling. Eyes: Conjunctiva/sclera: Conjunctivae normal. Pupils: Pupils are equal, round, and reactive to light. Cardiovascular: Rate and Rhythm: Normal rate and regular rhythm. Heart sounds: Normal heart sounds. Pulmonary: Effort: Pulmonary effort is normal. No tachypnea, accessory muscle usage or respiratory distress. Breath sounds: Normal breath sounds. No stridor. No wheezing, rhonchi or rales. Abdominal: General: There is no distension. Palpations: Abdomen is soft. Tenderness: There is no abdominal tenderness. There is no guarding or rebound. Musculoskeletal: Cervical back: Normal range of motion and neck supple. No edema, erythema, rigidity or tenderness. No pain with movement. Normal range of motion. Lymphadenopathy: Cervical: No cervical adenopathy. Skin: General: Skin is warm and dry. Neurological: Mental Status: She is alert and oriented to person, place, and time. ASSESSMENT/PLAN: 1. Viral illness - ICD9: 079.99, ICD10: B34.9 - Discussed viral etiology and rationale for treatment. - Symptomatic treatment with prn analgesia - Supportive care with fluids and rest - COVID AND INFLUENZA A/B NAAT, ROUTINE High suspicion for new viral illness. Low suspicion for secondary bacterial infection. Continue Augmentin as prescribed. Patient will follow up with primary care provider as needed. Patient was instru (more content not included)... Normal [facility] FLUABV + SARS-CoV-2 Pnl Resp NICOLASA+prbon 04-24-2023 Influenza virus A and B RNA and SARS-CoV-2 (COVID-19) N gene panel NICOLASA+probe (Resp) COVID 19 RESULT: Not detected The method used is RT-PCR or an equivalent NAAT method. Reference Range (the expected result in uninfected individuals): Not detected INFLUENZA A PCR: Not detected INFLUENZA B PCR: Detected Abnormal [facility] Comment on above: Performed By: #### 9 [id number] #### [facility] CLIA [id number] [address] [place] [address] OF [facility] CNOVon 04-18-2023 CNOV Office Visit ([facility]) EVERT CAMPBELL ([id number]) 1985 F Date Time Provider Department 04/18/23 1:00 PM HEDY RICE [facility] During your visit today, we recorded the following information about you: Temperature Pulse Respiration Blood pressure 98.4 degrees 87/minute 18/minute 112/78 Weight 67.4 kg Yudelak Fischer APRN.SAWMILL MOULDER OPERATOR 04/18/2023 1:06 PM Signed CC: Patient presents with: Cough: Cough, congestion and sinus pressure and pain x 8 days HPI: Evert Campbell is a 37 year old female who presents to the office with complaint of head congestion, cough, nonproductive, and sinus symptoms for 8 days. Symptoms are staying the same. Associated symptoms includes nasal congestion and facial pain/pressure. Denies fever, nausea, vomiting , and diarrhea. Treatments tried include nothing so far. with no relief of symptoms. Sick contacts: unknown. History of asthma, frequent episodes of bronchitis, chronic bronchitis, bronchiectasis or COPD: No Smoker: No Seasonal/environment al allergies: No The ROS is otherwise negative. The patient's pmh, medications, allergies, and past visits are reviewed. PHYSICAL EXAM: BP 112/78 Pulse 87 Temp 36.9 ?C (98.4 ?F) (Tympanic) Resp 18 Wt 67.4 kg (148 lb 9.6 oz) LMP 03/16/2015 SpO2 97% General appearance: alert, cooperative, pleasant, in no acute distress Head: Normocephalic Eyes: EOM's intact, conjunctiva pink and moist, no icterus, sclera white, non-injected Ears: Right ear: External ear/canal- Normal, TM - clear with good landmarks. Left ear: External ear/canal- Normal, TM - clear with good landmarks Oropharynx:mild erythema, without exudates present Heart: Negative. RRR without obvious murmur, gallop, or rubs. No ectopy. Lungs: clear to auscultation, without rales or wheeze, good air exchange No past medical history on file. No past surgical history on file. ALLERGIES Doxycycline MEDICATIONS Benzonatate (TESSALON) 200 mg capsule Take 200 mg by mouth three times daily as needed for Cough. NORGESTIMATE-ETHINYL ESTRADIOL (ORTHO TRI-CYCLEN LO ORAL) Take by mouth. (Patient not taking: Reported on 04/18/2023) No family history on file. Social History Tobacco Use Smoking status: Never Smokeless tobacco: Never ASSESSMENT/PLAN: 1. Rhinosinusitis - ICD9: 473.9, ICD10: J32.9 - AMOXICILLIN 875 MG-POTASSIUM CLAVULANATE 125 MG TABLET Prescription instructions reviewed with patient as applicable. Potential red flag symptoms discussed with the patient. Reviewed appropriate action plan to take if red flag symptoms occur. Patient agreeable to treatment plan. Yudelka Fischer APRN.Yudelka Anderson APRN.PEDRO PABLO 04/18/2023 1:21 PM Signed Addended by: YUDELKA FISCHER on: 04/18/2023 01:21 PM Modules accepted: Orders Yudelka Fischer APRN.CNP 04/18/2023 1:22 PM Signed Addended by: YUDELKA FISCHER on: 04/18/2023 01:22 PM Modules accepted: Orders Referring Provider: SELF [200] Allergies As of Date: 04/18/2023 Noted Allergy Reaction DOXYCYCLINE 04/18/2023 8 - GI Upset Date Reviewed: 04/18/2023 Reviewed by: Cookie Nance LPN - Fully Assessed Reason for Visit: Cough [28] Cmt: Cough, congestion and sinus pressure and pain x 8 days Primary Visit Diagnosis:Rhinosinus itis [J32.9] Order(s):amoxicillin -clavulanate potassium (AUGMENTIN) 875-125 mg per tabletTake 1 tablet by mouth two times a day for 10 days.Disp: 20 tabletRfl: 0 fluconazole (DIFLUCAN) 150 mg tabletTake 1 tablet by mouth once daily for 1 day.Disp: 1 tabletRfl: 0 Prescriptions as of 04/18/2023 - amoxicillin-clavulan ate potassium (AUGMENTIN) 875-125 mg per tablet Take 1 tablet by mouth two times a day for 10 days. - fluconazole (DIFLUCAN) 150 mg tablet Take 1 tablet by mouth once daily for 1 day. - Benzonatate (TESSALON) 200 mg capsule Take 200 mg by mouth three times daily as needed for Cough. - NORGESTIMATE-ETHINYL ESTRADIOL (ORTHO TRI-CYCLEN LO ORAL) Take by mouth. Problem List As Of Date: 04/18/2023 (None) Prescriptions ordered this encounter Disp Refills Start End AMOXICILLIN 875 MG-POTASSIUM CLAVULA* 14 t* 0 04/18/2023 04/18/2023 Route: ORAL Sig: Take 1 tablet by mouth two times a day for 7 days. AMOXICILLIN 875 MG-POTASSIUM CLAVULA* 20 t* 0 04/18/2023 04/28/2023 Route: ORAL Sig: Take 1 tablet by mouth two times a day for 10 days. FLUCONAZOLE 150 MG TABLET 1 ta* 0 04/18/2023 04/19/2023 Route: ORAL Sig: Take 1 tablet by mouth once daily for 1 day. Medications Discontinued During This Encounter Prescriptions - amoxicillin-clavulan ate potassium (AUGMENTIN) 875-125 mg per tablet (Discontinued) Take 1 tablet by mouth two times a day for 7 days. Encounter Status:Closed by YUDELKA FISCHER on 04/18/23 Normal [facility] Cervical or vagninal specime n microscopic examination by cytology stain (reported ason 07-02-2021 Cytology report Cyto stain Doc (Cvx/Vag) Comment [facility] Work Phone: Comment on above: The Pap smear is a s creening test designed to aid in thedetection of premalignant and malignant conditions of theuterine cervix. It is not a diagnostic procedure andshould not be used as the sole means of detecting cervicalcancer. Both false-positive and false-negative reports dooccur. Detection in cervical specim en of any of human papilloma virus (HPV) 16, 18, 31, 33,on 07-02-2021 HPV 16+18+31+33+35+39+45+51+ 52+56+58+59+66+68 DNA Probe+sig amp Ql (Cvx) Negative Negative [facility] Work Phone: Comment on above: This nucleic acid am plification test detects fourteen high-risk HPV types (16,18,31,33,35,39,45,51,52,56,58,59,66,68)without differentiation.Performed at: - [address] [id number] Director: Olivia Oconnell MD, Phone: [phone] at: =[facility] [id number] Director: Olivia Oconnell MD, Phone: [phone] Laboratory - Cytologyon 06-22 Plastic Surgery Manager Cyto stain Nom (Cvx/Vag) [ID] Comment [facility] Work Phone: Comment on above: Han Preston totechnologist (ASCP) Laboratory - Miscellaneous t estson 07-02-2021 Service comment (Unsp spec) [Interp] Comment [facility] Work Phone: Comment on above: This liquid based Th inPrep(R) pap test was screened withthe use of an image guided system. Service comment (Unsp spec) [Interp] . [facility] Work Phone: No Panel Informationon 07-02 Pathology report final diagnosis Narrative Comment [facility] Work Phone: Comment on above: NEGATIVE FOR INTRAEP ITHELIAL LESION OR MALIGNANCY. Vital Signs Date Time Vital Sign Value Performing Clinician Monica hastings 11-08-2024 09:49-0400 Body height 160.02 cm No Primary Care Physician [facility] 11-08-2024 09:49-0400 Body mass index (BMI) [Ratio] 26.4 kg/m2 No Primary Care Physician [facility] 11-08-2024 09:49-0400 Body weight 67.58 kg No Primary Care Physician [facility] 11-08-2024 09:49-0400 Diastolic blood pressure 75 mm[Hg] No Primary Care Physician [facility] 11-08-2024 09:49-0400 Systolic blood pressure 108 mm[Hg] No Primary Care Physician [facility] 08-23-2024 10:10-0400 Body height 160.02 cm No Primary Care Physician [facility] 08-23-2024 10:10-0400 Body mass index (BMI) [Ratio] 26.4 kg/m2 No Primary Care Physician [facility] 08-23-2024 10:10-0400 Body temperature 98.9 [degF] No Primary Care Physician [facility] 08-23-2024 10:10-0400 Body weight 67.58 kg No Primary Care Physician [facility] 08-23-2024 10:10-0400 Diastolic blood pressure 76 mm[Hg] No Primary Care Physician [facility] 08-23-2024 10:10-0400 Heart rate 73 /min No Primary Care Physician [facility] 08-23-2024 10:10-0400 Respiratory rate 16 /min No Primary Care Physician [facility] 08-23-2024 10:10-0400 SaO2% (BldA) [Mass fraction] 97 % No Primary Care Physician [facility] 08-23-2024 10:10-0400 Systolic blood pressure 104 mm[Hg] No Primary Care Physician [facility] Encounters Encounter Date Encounter Type Care Provider Facility Start: 11-15-2024 ambulatory Sotero Jean-Baptiste ty:[facility] Start: 11-08-2024 End: 11-08-[address] Gayle Conroy DO -[facility] Work Phone: Start: 11-08-2024 End: 11-08-[address] Gayle Conroy DO [facility] Start: 11-08-2024 End: 11-08-2024 ambulatory No Primary Care Physician -[facility] Start: 09-05-2024 Encounter for genera l adult medical examination without abnormal findings Sotero العراقي [facility] Start: 08-30-2024 End: 08-30-2024 ambulatory No Primary Care Physician [facility] Work Phone: Start: 08-30-2024 End: 08-30-[address] Sotero العراقي MD -[facility] Start: 08-30-2024 End: 08-30-2024 ambulatory Sotero العراقي Facility:[facility] Start: 08-23-2024 End: 08-23-[address] Sotero العراقي MD -[facility] Work Phone: Start: 08-23-2024 End: 08-23-[address] Sotero العراقي MD [facility] Start: 08-23-2024 End: 08-23-2024 ambulatory No Primary Care Physician [place] [place]: 04-24-2023 End: 04-24-2023 ambulatory MARIA DE JESUS SHAH Facility:[facility] Start: 04-18-2023 End: 04-18-2023 ambulatory WOLF FISH Facility:[facility] Start: 07-02-2021 End: 07-02-2021 Patient encounter procedure [facility], Specimen Procedures Date Procedure Procedure Detail Performing Clinician Start: 07-01-2019 Follow-up visit H/O: section Previous c esarean delivery affecting , delivered Plan of Treatment Date Care Activity Detail Author MG Breast - bilateral Screening [facility] Payers Date Payer Category Payer Self-pay [id number] 2018 Unknown [id number] Unknown [id number] Unknown [id number] Unknown [id number] Unknown [id number] Unknown [id number] Social History Date Type Detail Facility Start: 08-12-2017 Tobacco smoking stat us VTIS Unknown if ever smoked [facility] Work Phone: Start: 1985 Sex Assigned At Female [facility] Start: 08-23-2024 End: 11-08-2024 Tobacco smoking status NHIS Never smoked tobacco (finding) [facility] Evaluation note 08-23-2024 Note Date & Type Note Facility 08-23-2024 Evaluation note Diagnosis Onset Date Resolution Bloating acute August 23, 2024 9:48am Encounter to establish care acute August 23, 2024 9: 48am [facility]ative health care acute August 23, 2024 9: 48am Chronic constipation chronic August 23, 2024 9:48am [facility] Work Phone: Evaluation note 08-23-2024 Note Date & Type Note Facility 08-23-2024 Evaluation note Diagnosis Onset Date Resolution Bloating acute August 23, 2024 9:48am Encounter to establish care acute August 23, 2024 9: 48am [facility] care acute August 23, 2024 9:48am Chronic constipation chronic August 23, 2024 9:48am Encounter for routine gynecological examination noneactive November 08, 2024 9:39am [facility] Work Phone: Progress note 04-24-2023 Note Date & Type Note Facility 04-24-2023 Note HNO ID: [id number] Author: Maria De Jesus Shah APRN.[employer] MOULDER OPERATOR Service: ? Author Type: Nurse Practitioner Type: Progress Notes Filed: 04/24/2023 10:28 AM Note Text: Subjective HPI Nontoxic-appearing female presents urgent care chief complaint cough nasal congestion sinus pressure body aches chills night sweats low-grade temperature. Patient was seen here the day after Otto. Diagnosed with bacterial sinusitis. Placed on Augmentin for 10 days. Still has 4 days of antibiotic left. States initially symptoms were improving when she felt poorly again on Monday of last week. States she developed body aches chills fatigue night sweats worsening cough. Additionally states eyes feel slightly achy. States symptoms are slightly improving. Presents here today for evaluation. Has been using OTC medications that have helped some. States daughter tested positive for influenza 1226. Denies any high fevers productive cough chest pain shortness of breath hemoptysis nausea vomiting abdominal pain visual changes eye trauma flashlight floaters eye drainage pain with EOMs. Past medical history prescription medications allergies reviewed. Denies chance of is not breast-feeding. .Patient presents with: Sinus Problem: Possible sinus issue, congestion, bilateral eye pain, cough x 2 weeks History reviewed. No pertinent past medical history. History reviewed. No pertinent surgical history. ALLERGIES Doxycycline MEDICATIONS amoxicillin-clavulanate potassium (AUGMENTIN) 875-125 mg per tablet Take 1 tablet by mouth two times a day for 10 days. Benzonatate (TESSALON) 200 mg capsule Take 200 mg by mouth three times daily as needed for Cough. NORGESTIMATE-ETHINYL ESTRADIOL (ORTHO TRI-CYCLEN LO ORAL) Take by mouth. (Patient not taking: Reported on 04/18/2023) History reviewed. No pertinent family history. Social History Tobacco Use Smoking status: Never Smokeless tobacco: Never BP 112/76 Pulse 99 Temp 37.1 ?C (98.7 ?F) Resp 21 Wt 65.5 kg (144 lb 6.4 oz) LMP 03/16/2015 SpO2 98% Review of Systems Constitutional: Positive for chills and malaise/fatigue. Negative for fever. HENT: Positive for congestion and sore throat. Negative for ear discharge, ear pain and sinus pain. Eyes: Negative for blurred vision, pain, discharge and redness. Respiratory: Positive for cough. Negative for hemoptysis, sputum production, shortness of breath, wheezing and stridor. Cardiovascular: Negative for chest pain. Gastrointestinal: Negative for abdominal pain, diarrhea, nausea and vomiting. Musculoskeletal: Positive for myalgias. Skin: Negative for itching and rash. Neurological: Positive for headaches. Negative for dizziness. Objective Physical Exam Constitutional: General: She is not in acute distress. Appearance: She is not diaphoretic. HENT: Head: Normocephalic. Jaw: No trismus, tenderness, swelling or pain on movement. Right Ear: Tympanic membrane, ear canal and external ear normal. Left Ear: Tympanic membrane, ear canal and external ear normal. Nose: Congestion present. Mouth/Throat: Mouth: Mucous membranes are moist. Pharynx: Oropharynx is clear. Uvula midline. No pharyngeal swelling, oropharyngeal exudate, posterior oropharyngeal erythema or uvula swelling. Eyes: Conjunctiva/sclera: Conjunctivae normal. Pupils: Pupils are equal, round, and reactive to light. Cardiovascular: Rate and Rhythm: Normal rate and regular rhythm. Heart sounds: Normal heart sounds. Pulmonary: Effort: Pulmonary effort is normal. No tachypnea, accessory muscle usage or respiratory distress. Breath sounds: Normal breath sounds. No stridor. No wheezing, rhonchi or rales. Abdominal: General: There is no distension. Palpations: Abdomen is soft. Tenderness: There is no abdominal tenderness. There is no guarding or rebound. Musculoskeletal: Cervical back: Normal range of motion and neck supple. No edema, erythema, rigidity or tenderness. No pain with movement. Normal range of motion. Lymphadenopathy: Cervical: No cervical adenopathy. Skin: General: Skin is warm and dry. Neurological: Mental Status: She is alert and oriented to person, place, and time. ASSESSMENT/PLAN: 1. Viral illness - ICD9: 079.99, ICD10: B34.9 - Discussed viral etiology and rationale for treatment. - Symptomatic treatment with prn analgesia - Supportive care with fluids and rest - COVID AND INFLUENZA A/B NAAT, ROUTINE High suspicion for new viral illness. Low suspicion for secondary bacterial infection. Continue Augmentin as prescribed. Patient will follow up with primary care provider as needed. Patient was instructed to immediately proceed to emergency room for any new, worsening, or symptoms lasting longer than anticipated. The patient's clinical presentation is otherwise unremarkable at this time. Based on exam and clinical finding, the patient is stable for discharge. Plan of care (more content not included)... [facility] Progress note 04-18-2023 Note Date & Type Note Facility 04-18-2023 Note HNO ID: [id number] Author: Yudelka Fischer APRN.SAWMILL MOULDER OPERATOR Service: ? Author Type: Nurse Practitioner Type: Progress Notes Filed: 04/18/2023 1:06 PM Note Text: CC: Patient presents with: Cough: Cough, congestion and sinus pressure and pain x 8 days HPI: Evert Campbell is a 37 year old female who presents to the office with complaint of head congestion, cough, nonproductive, and sinus symptoms for 8 days. Symptoms are staying the same. Associated symptoms includes nasal congestion and facial pain/pressure. Denies fever, nausea, vomiting , and diarrhea. Treatments tried include nothing so far. with no relief of symptoms. Sick contacts: unknown. History of asthma, frequent episodes of bronchitis, chronic bronchitis, bronchiectasis or COPD: No Smoker: No Seasonal/environmental allergies: No The ROS is otherwise negative. The patient's pmh, medications, allergies, and past visits are reviewed. PHYSICAL EXAM: BP 112/78 Pulse 87 Temp 36.9 ?C (98.4 ?F) (Tympanic) Resp 18 Wt 67.4 kg (148 lb 9.6 oz) LMP 03/16/2015 SpO2 97% General appearance: alert, cooperative, pleasant, in no acute distress Head: Normocephalic Eyes: EOM's intact, conjunctiva pink and moist, no icterus, sclera white, non-injected Ears: Right ear: External ear/canal- Normal, TM - clear with good landmarks. Left ear: External ear/canal- Normal, TM - clear with good landmarks Oropharynx:mild erythema, without exudates present Heart: Negative. RRR without obvious murmur, gallop, or rubs. No ectopy. Lungs: clear to auscultation, without rales or wheeze, good air exchange No past medical history on file. No past surgical history on file. ALLERGIES Doxycycline MEDICATIONS Benzonatate (TESSALON) 200 mg capsule Take 200 mg by mouth three times daily as needed for Cough. NORGESTIMATE-ETHINYL ESTRADIOL (ORTHO TRI-CYCLEN LO ORAL) Take by mouth. (Patient not taking: Reported on 04/18/2023) No family history on file. Social History Tobacco Use Smoking status: Never Smokeless tobacco: Never ASSESSMENT/PLAN: 1. Rhinosinusitis - ICD9: 473.9, ICD10: J32.9 - AMOXICILLIN 875 MG-POTASSIUM CLAVULANATE 125 MG TABLET Prescription instructions reviewed with patient as applicable. Potential red flag symptoms discussed with the patient. Reviewed appropriate action plan to take if red flag symptoms occur. Patient agreeable to treatment plan. Yudelka Fischer APRN.[facility] Clinical Note 07-02-2021 Note Date & Type Note Facility 07-02-2021 Note [facility] Work Phone: Pap Smear Specimen Adequacy July 02, 2021 12:30pm Comment Satisfactory for evaluation. Endocervical and/or squamous metaplasticcells (endocervical component) are present. Comment on above: Satisfactory for marsha luation. Endocervical and/or squamous metaplasticcells (endocervical component) are present. Evaluation note Note Date & Type Note Facility Evaluation note No assessment information availa ble [facility] Work Phone: Reason for referral (narrative) Note Date & Type Note Facility Reason for referral (narrative) No reason for referral information available [facility] Work Phone: Summary Purpose Family History No Family History Records Found Relationship Condition Age at Onset Recorded Date/T rakan grandfather Malignant neoplasm Unknown Cardiac disease Unknown mother Crohn's disease Unknown Relationship Condition Age at Onset Recorded Date/T rakan grandfather Malignant neoplasm Unknown Cardiac disease Unknown Diabetes mellitus Unknown Myocardial infarction Unknown High blood cholesterol Unknown Malignant melanoma Unknown mother Crohn's disease Unknown Osteoporosis Unknown Hypertension Unknown sister Hypertension Unknown grandmother Malignant melanoma Unknown Advance Directives No Advanced Directives Records Found Advance Directive Response Recorded Date/ Time Living Will No August 08, 2017 11:02am Power of Email Operations Manager No August 08 11:02am Chief Complaint and Reason for Visit Chief Complaint Admit Date ERP 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 CONSULTANT EST CARE PPW SENT August 23, 2024 9:48a m Reason for Visit Admit Date Bloating August 23, 2024 9:48am Encounter to establish care August 23 9:48am Preventative health care August 23, 2024 9 :48am Chronic constipation August 23, 2024 9:48a m Chief Complaint Admit Date 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 CONSULTANT EST CARE PPW SENT August 23, 2024 9:48a m Annual (SWING MANAGER) November 08, 2024 9:39 am Reason for Visit Admit Date Bloating August 23, 2024 9:48am Encounter to establish care August 23 9:48am Preventative health care August 23, 2024 9 :48am Chronic constipation August 23, 2024 9:48a m Encounter for routine gynecological exam ination November 08, 2024 9:39am Additional Source Comments INFORMATION SOURCE (unrecogn ized section and content) DATE CREATED AUTHOR 07/01/2019 [place] DATE CREATED AUTHOR AUTHOR'S ORGANIZ ATION 04/24/2023 [facility] DATE CREATED AUTHOR AUTHOR'S ORGANIZ ATION 11/11/2024 [facility] Goals (unrecognized section and content) Goals may be documented in a n alternate sectionGoals may be documented in an alternate sectionGoals may be documented in an alternate section Care Teams (unrecognized sec tion and content) Team Status: Active Member Role Status Dates No Primary Care Physician Family Provider Active Dr. Sotero العراقي MD Primary Care Provider Active Team Status: Inactive Member Role Status Dates No Primary Care Physician Primary Care Provider Active Start: August 23, 2024 End: August 23, 2024 No Primary Care Physician Referring Provider Active Start: August 23, 2024 End: August 23, 2024 Dr. Sotero العراقي MD Attending Provider Active Start: August 23, 2024 End: August 23, 2024 Team Status: Inactive Member Role Status Dates Dr. Sotero العراقي MD Primary Care Provider Active Start: August 30, 2024 End: August 30, 2024 Dr. Sotero العراقي MD Attending Provider Active Start: August 30, 2024 End: August 30, 2024 Dr. Sotero العراقي MD Referring Provider Active Start: August 30, 2024 End: August 30, 2024 Team Status: Active Member Role/Relationship Status Dates Dr. Sotero العراقي MD Primary Care Provider Active Team Status: Inactive Member Role/Relationship Status Dates No Primary Care Physician Primary Care Provider Active Start: August 23, 2024 End: August 23, 2024 No Primary Care Physician Referring Provider Active Start: August 23, 2024 End: August 23, 2024 Dr. Sotero العراقي MD Attending Provider Active Start: August 23, 2024 End: August 23, 2024 Team Status: Inactive Member Role/Relationship Status Dates Dr. Sotero العارقي MD Primary Care Provider Active Start: August 30, 2024 End: August 30, 2024 Dr. Sotero العراقي MD Attending Provider Active Start: August 30, 2024 End: August 30, 2024 Dr. Sotero العراقي MD Referring Provider Active Start: August 30, 2024 End: August 30, 2024 Team Status: Inactive Member Role/Relationship Status Dates No Primary Care Physician Referring Provider Active Start: November 08, 2024 End: November 08, 2024 Dr. Gayle Conroy DO Attending Provider Activ e Start: November 08, 2024 End: November 08, 2024 Dr. Sotero العراقي MD Primary Care Provider Active Start: November 08, 2024 End: November 08, 2024 FOR RECORDS PERTAINING TO PATIENTS WHO ARE OR HAVE BEEN ENROLLED IN A CHEMICAL DEPENDENCY/SUBSTANCEABUSE PROGRAM, SOME INFORMATION MAY BE OMITTED. This clinical summary was aggregated from multiple sources. Caution should be exercised in using it in the provision of clinical care. This summary normalizes information from multiple sources, and as a consequence, information in this document may materially change the coding, format and clinical context of patient data. In addition, data may be omitted in some cases. CLINICAL DECISIONS SHOULD BE BASED ON THE PRIMARY CLINICAL RECORDS. [employer] provides no warranty or guarantee of the accuracy or completeness of information in this document.
== END | disposition home or self-care (01) ==
LOC: OPBI 08:33
PROVIDERS: PCP Internal Medicine; Referring Provider Obstetrics & Gynecology; Visit Provider Obstetrics & Gynecology
DX: Z12.31 Encounter for screening mammogram for malignant neoplasm of breast (principal)
CPT/HCPCS: 77063; 77067